=== PATIENT | male | born 1945 | race Caucasian/White ===

== ENCOUNTER 2024-01-15 03:50 | Emergency (ER) | payer MEDICARE, BC ==
[~2024-01-15] VITALS: Ht 188 cm; Wt 94.3 kg
[2024-01-15 04:36] VITALS: TEMP 98
[2024-01-15 06:20] VITALS: BP 154/93; O2SAT 98
== END 2024-01-15 06:23 | disposition home or self-care (01) ==
LOC: ER 04:08
DX: S09.90XA Unspecified injury of head, initial encounter (principal); I10 Essential (primary) hypertension; J45.909 Unspecified asthma, uncomplicated; F31.9 Bipolar disorder, unspecified; W06.XXXA Fall from bed, initial encounter; Y93.89 Activity, other specified; Y92.89 Other specified places as the place of occurrence of the external cause; Y99.8 Other external cause status
CPT/HCPCS: 70450-TC

== ENCOUNTER 2024-02-13 21:13 | Emergency (ER) | payer MEDICARE, BC ==
[~2024-02-13] VITALS: Ht 172.7 cm; Wt 95.3 kg
[2024-02-13] MEDS ORDERED: ACETAMINOPHEN ES 500 MG TABLET ONE (22:26)
[2024-02-13] MEDS: ACETAMINOPHEN ES 500 MG TABLET PO ONE (22:37)
[2024-02-14 02:11] VITALS: BP 130/95; TEMP 98.5; O2SAT 98
== END 2024-02-14 02:11 | disposition home or self-care (01) ==
LOC: ER 21:18
DX: S09.8XXA Other specified injuries of head, initial encounter (principal); M54.50 Low back pain, unspecified; I10 Essential (primary) hypertension; J45.909 Unspecified asthma, uncomplicated; F31.9 Bipolar disorder, unspecified; W18.39XA Other fall on same level, initial encounter; Y93.89 Activity, other specified; Y92.89 Other specified places as the place of occurrence of the external cause; Y99.8 Other external cause status
CPT/HCPCS: 70450-TC; 72125-TC; 72170-TC; 73564-TC